=== PATIENT | male | born 1950 ===

== ENCOUNTER 2016-04-08 11:57 | Inpatient (IN) | payer MEDICARE ==
[~2016-04-08] VITALS: Ht 175.3 cm; Wt 80.7 kg
[2016-04-08 14:38] VITALS: BP 197/103; PULSE 80; RESP 18; O2SAT 95
[2016-04-08] MEDS ORDERED: Ondansetron 2 mg/mL 2 mL Inj IVPUSH PRN (15:35)
[2016-04-08] MEDS ORDERED: Polyethylene Glycol (PEG) 17 Gm Powder PO PRN (15:35)
[2016-04-08] MEDS ORDERED: Alum-Mag Hydrox-Simeth 30 mL Suspension PO PRN (15:35)
[2016-04-08] MEDS ORDERED: Glucose 40% Oral Gel 15 Gm Tube PO PRN (15:40)
[2016-04-08 15:57] LABS: BASOPHILS % (AUTO) 0.2 % (0-3); MONOCYTES % (AUTO) 5.9 % (4-12); Mean Corpuscular Hemoglobin 29.5 pg (27.0-35.0); Mean Corpuscular Volume 85.4 fL (81-100); NEUTROPHILS % (AUTO) 86.6 % (40-74); Platelet Count 200 bil/L (150-400)
--- NOTE | 2016-04-08 16:07 | PCM.HPMED ---
Subjective Date of Service Apr 08, 2016 Primary Provider: Admitting Physician: Jagdish Carmichael MD Primary Care Physician: Attending Physician: Jagdish Carmichael MD Chief Complaint: Admitted initially for chest pain to [facility]. found to have hematuria/ADELAIDE/ obstructive hydronephrosis History of Present Illness: 65-year-old male presenting with chest pain on exertion to [facility]. 04/06 is what the documentation states. Patient tells me he had missed a few appointments and was not getting his medications for at least several months he has not exactly clear how long. Could have been as long as a year. He had been using insulin in the past changed to metformin and had not had lab work done. He decided to go in to get lab work done. Patient actually denies any urinary problems prior to the Rutledge catheter insertion. Review of Systems: Patient equivocally denies really much all symptoms other than the hematuria/ dysuria that started after the catheter was inserted Gen.: No fevers chills weight loss weight gain Eyes: no visual disturbances or blurring vision HEENT: No nose/throat drainage, no pain in ears or throat, no hearing loss Lymph: No lymph nodes noted Cardiac: No chest pain, orthopnea, PND, palpitations , pedal edema or dyspnea on exertion Pulmonary: no cough, wheezing or bringing up of sputum GI: No anorexia nausea vomiting blood or black in the stool : no dysuria hematuria urinary frequency or decrease in urine output Musculoskeletal: Joint swelling no joint pain no new muscle aches or back pain Neuro: No syncope, seizures no loss of consciousness no new focal weakness, numbness or tingling Psychiatric: New new anxiety insomnia or depression Endocrine: No new heat or cold intolerances polyuria or polydipsia Hematology: No lymphadenopathy or easy bleeding or bruising noted skin: No new rashes, stasis dermatitis Allergies Uncoded Allergies: steroid (Adverse Reaction, Mild, hyperglycemia, 04/08/16) Home Medications The last 6 months to your patient has been on no medication In the past patient has taken Lisinopril, florastore, metformin PMH HTN DM2 hyperlipidemia CKD medication noncompliance Surgical History None Family History Both parents of old age mother of a stroke and father uncertain Social- patient does not drink or smoke or use illicit drugs lives alone with his girlfriend no children and does not work at this time Exam Vital Signs Vital Sign - Last Date Time Temp Pulse Resp B/P Pulse Ox O2 Delivery O2 Flow Rate FiO2 04/08/16 14:38 37.0 80 18 197/103 95 Room Air Exam Gen.- A+ O 3 no apparent distress. Eyes- open conjunctiva clear, pupils equal nonicteric Mouth- oral mucosa moist, no exudate dentition not great missing front teeth but otherwise largely intact ENT- ears normal, nose normal Neck- supple/trach midline CVS- RRR no murmur or gallop Lungs- CTA GI- NABS/NT soft Musc- moving 4 no obvious deformity Neuro- cranial nerves II through XII intact to gross examination, nonfocal Skin- warm and dry, no rashes/lesions/wounds noted Psych- pleasant and appropriate, Lab and Diagnostics Labs WBC 9.7, Hg 12.4, PLT 185 2/5 NA 141, K3.8, CL 1:15, CO2 21, BUN/creatinine 29, CR 2.8, GLU C1 16 2/5 LFTs WNL 1/5 LDL 45, HDL 23, Trig 124 2/5 HG A1c 6.7 2/5 Troponin 0.04 2/5 Iron/transfer and Ferritin WNL, B12 low normal 193, folate 11.16 2/5 PSA 3.88 2/5 UA moderate occult blood, 05 RBC X-Rays, CTs and MRIs Renal ultrasound equals symmetric hydronephrosis, incomplete bladder emptying both ureteral jets confirmed, enlarged prostate 2/4 CXR mild bibasilar atelectasis 2/4 CT pelvis without contrast extraperitoneal edema surrounding bladder suspicious for acute cystitis, latter completely compressed with Rutledge catheter thickened bladder wall, state hypertrophy, no lymphadenopathy, bilateral hydroureter 2/5 Cardiac Echo Impressions EF 70-75 percent no regional wall motion abnormalities normal to no valvular disease 2/ Assessment & Plan 65-year-old male transferred from [facility] for higher level of care 04/08. Patient actually seems to be on the right track not sure that nephrology/ urology her emergently warranted for inpatient consultation. I will continue to observe this patient and I will discuss with both Danielle France () and Aiden (renal) but have every expectation that they will need to see this patient except in the outpatient setting. I will continue matching I's and O's and monitoring renal function and optimize him medically and likely be discharging him in the next few days when renal function seems to have stabilized wherever that is. Gross hematuria-not unexpected with postobstructive diuresis/cystitis. Will monitor hemoglobin ADELAIDE/CKD3?- 2/2 to obst uropathy relieved by Rutledge catheter. Match I/os for direction of ADELAIDE and postobstructive diuresis, follow BUNs/CR and continue tamsulosin/adding finasteride 2/ likely will have outpatient urology follow- up. If there is anything ongoing or seems substantially may consult as inpatient and probably will discuss in the next day or 2 with urology here. HTN- patient just started on clonidine patch and going to discontinue this as I am my concern is rebound hypertension in a noncompliant patient. Instead I am going to continue metoprolol/amlodipine with when necessary hydralazine and add lisinopril when renal function is better DM2- uncontrolled. HG A1c 6.6 2/ Metformin contraindicated in setting of renal failure will use sliding scale insulin until improved. We will discharge on appropriate medications as indicated Hx hypertriglyceridemia- this must come from clinic notes most recent does not suggest hypertriglyceridemia and patient is not on medications perhaps he had eaten prior to having it drawn when he got this diagnosis. ?? Hypothyroidism??- came over on [place] Thyroid 60 mg we I see no thyroid functions will check TSH and free T4 and stop [place] Thyroid at this time. Prophylaxis- DVT patient on SCDs, heparin, GI famotidine Disposition- full code from [place] Jagdish Carmichael MD Apr 08, 2016 16:07
[2016-04-08 16:32] LABS: Magnesium 1.8 mg/dL (1.6-2.6)
[2016-04-08 16:41] LABS: TROPONIN T < 0.010 ug/L (0.0-0.011)
[2016-04-08] MEDS: 0.9% Sodium Chloride 1,000 ML IV SCH (16:46)
[2016-04-08] MEDS: Insulin LISPRO 300 Unit/3 mL Inj SUBQ SCH ×2 (16:47→22:00)
[2016-04-08 16:50] LABS: Creatine Kinase 44 U/L (21-232)
--- NOTE | 2016-04-08 16:54 | NUR ---
Admit note- Received patient to room 1031 via ambulance from [facility]. Report given per phone from RN at that facility. Patient is alert and oriented. Denies pain. Rutledge catheter in place draining red colored urine. Oriented patient to room, call light, procedures, etc.
[2016-04-08] MEDS: HYDROcodone-APAP 5-325 mg Tablet PO PRN (18:24)
[2016-04-08 18:52] LABS: APPEARANCE,URINE HAZY (CLEAR,HAZY); COLOR,URINE BLOODY (YELLOW)
[2016-04-08 18:53] LABS: OCCULT BLOOD,URINE LARGE (NEGATIVE)
[2016-04-08] MEDS: Heparin 5,000 Unit/mL Inj SUBQ SCH (22:00)
[2016-04-08 22:15] VITALS: BP 180/99; PULSE 97; RESP 18; O2SAT 96
--- NOTE | 2016-04-09 02:02 | NUR ---
Activity Patient bedrest during shift. Answered most questions appropriately. Alert and oriented x3. Patient mentioned eating at [employer] when asked if he had pain. VSS. Call light within reach. Care continues.
[2016-04-09] MEDS: 0.9% Sodium Chloride 1,000 ML IV SCH (02:08)
[2016-04-09] MEDS: HYDROcodone-APAP 5-325 mg Tablet PO PRN ×3 (05:26→22:21)
[2016-04-09 05:55] VITALS: BP 200/119; PULSE 91; RESP 22; O2SAT 97
[2016-04-09] MEDS: Insulin LISPRO 300 Unit/3 mL Inj SUBQ SCH ×4 (08:00→22:00)
[2016-04-09 08:30] VITALS: BP 166/99; PULSE 81; RESP 18; O2SAT 94
[2016-04-09] MEDS ORDERED: Influenza (Adult) Vaccine 0.5 mL Syringe IM ONE (08:30)
[2016-04-09 08:40] LABS: BASOPHILS % (AUTO) 0.3 % (0-3); EOSINOPHILS % (AUTO) 4.3 % (0-5); MONOCYTES % (AUTO) 8.9 % (4-12); Mean Corpuscular Hemoglobin 29.4 pg (27.0-35.0); Mean Corpuscular Volume 86.9 fL (81-100); NEUTROPHILS % (AUTO) 71.2 % (40-74); Platelet Count 187 bil/L (150-400)
[2016-04-09] MEDS: Heparin 5,000 Unit/mL Inj SUBQ SCH ×2 (09:40→20:35)
[2016-04-09] MEDS ORDERED: 0.9% Sodium Chloride 500 ML IV ONE (10:05)
[2016-04-09 13:00] VITALS: BP 173/102; PULSE 97; RESP 20; O2SAT 94
[2016-04-09 18:10] VITALS: BP 193/104; PULSE 68
--- NOTE | 2016-04-09 18:19 | CONS ---
[address] [address] CONSULTATION REPORT PATIENT: JULIAN YANEZ : 1950 MR#: [id number] ADMIT: 04/08/2016 JOB ID: [id number] DATE OF SERVICE: 04/09/2016 HISTORY OF PRESENT ILLNESS: The patient was admitted as a transfer from [facility] with urinary retention, hematuria, and bilateral hydronephrosis. He had been catheterized at [facility] for over 1000 mL. His renal failure and hydronephrosis are almost certainly due to obstructive uropathy. He has been on Flomax and Proscar for some time. He has also one as of his medications oxybutynin 2.5 mg t.i.d. which is certainly a factor in his urinary retention. Past medical, social, and family history: See admission note. PHYSICAL EXAMINATION: A thin 65-year-old in no acute distress. Head and neck: Poor dentition. Trachea midline. Chest: Clear. The abdomen is soft. No masses. No organomegaly. Bowel sounds normal. There is a Rutledge catheter in place. Testes are normal. PLAN: I am going to discontinue his oxybutynin and maintain him on a double dose of Flomax 0.8 mg daily. My plan will be to discharge him home with a catheter for followup in the office. I think discharge would be appropriate as soon as we see a drop in his creatinine, hopefully tomorrow.
--- NOTE | 2016-04-09 18:48 | PCM.PNMED ---
Subjective Date of Service Apr 09, 2016 Subjective No complaints of chest pain, dyspnea, nausea or vomiting. Overall he is feeling better and that his urine is less bloody looking. Exam Vital Signs Vital Sign - Last Date Time Temp Pulse Resp B/P Pulse Ox O2 Delivery O2 Flow Rate FiO2 04/09/16 18:10 68 193/104 04/09/16 13:00 36.3 20 94 Room Air Intake and Output 04/08/16 04/08/16 04/09/16 Cumulative From/Thru 15:00 23:00 07:00 04/08/16 14:36 - 04/09/16 05:55 Intake Total 577 ml 840 ml 1417 ml Output Total 1500 ml 1700 ml 3200 ml Balance -923 ml -860 ml -1783 ml Intake Oral 400 ml 840 ml 1240 ml IV Total 177 ml 177 ml Output Urine Total 1500 ml 1700 ml 3200 ml # Bowel Movements 0 0 Lab and Diagnostics Result Diagram: 04/09/16 0620 04/09/16 1606 X-Rays, CTs and MRIs Renal ultrasound equals symmetric hydronephrosis, incomplete bladder emptying both ureteral jets confirmed, enlarged prostate 2/4 CXR mild bibasilar atelectasis /4 CT pelvis without contrast extraperitoneal edema surrounding bladder suspicious for acute cystitis, latter completely compressed with Rutledge catheter thickened bladder wall, state hypertrophy, no lymphadenopathy, bilateral hydroureter / Cardiac Echo Impressions EF 70-75 percent no regional wall motion abnormalities normal to no valvular disease / Assessment & Plan 65-year-old male transferred from [facility] for higher level of care 04/08. Patient actually seems to be on the right track not sure that nephrology/ urology her emergently warranted for inpatient consultation. I will continue to observe this patient and I will discuss with both Danielle France () and Aiden (renal) but have every expectation that they will need to see this patient except in the outpatient setting. I will continue matching I's and O's and monitoring renal function and optimize him medically and likely be discharging him in the next few days when renal function seems to have stabilized wherever that is. Gross hematuria-not unexpected with postobstructive diuresis/cystitis. Hg stable, hematuria is improving. Thank you Dr. Villareal urology for consultation. Hg dropping whether this is from hematuria versus dilution not clear. Hg 13.1 , 11.4 04/09. ADELAIDE/CKD3?- 2/ to obst uropathy relieved by Rutledge catheter. Match I/os for direction of ADELAIDE and postobstructive diuresis, follow BUNs/CR and continue tamsulosin/adding finasteride 04/08 likely will have outpatient urology follow- up. Cr 2.76, 2.53 04/09, f/u in AM HTN- SBP 166-200 on coreg 12.5 bid, amlodipine 10mg + hydralazine 50mg q4 prn SBP>170 04/09 add lisinopril when renal function is better DM2- uncontrolled. HG A1c 6.6 04/06 BS 95-175 04/09 Hx hypertriglyceridemia- this must come from clinic notes most recent does not suggest hypertriglyceridemia and patient is not on medications perhaps he had eaten prior to having it drawn when he got this diagnosis. Lipids Trig 126 , LDL 52, HDL 28 04/08 ?? Hypothyroidism??- came over on [place] Thyroid 60 mg we I see no thyroid functions will check TSH and free T4 and stop [place] Thyroid at this time. TSH 1.46, free T4 0.90 04/08. No indication no hypothyroidism. No treatment. Prophylaxis- DVT patient on SCDs, heparin, GI famotidine Disposition- full code from home [employer]: Anti-Embolic stockings Jagdish Carmichael MD Apr 09, 2016 18:48
--- NOTE | 2016-04-09 19:33 | NUR ---
Elevated BP/Pain Patient BP 193/104. PRN hydralazine given if SBP greater than 170. Patient reported 7/10 abdominal pain. 2 tabs of [place] given. Denies nausea. Call light and tray table within reach. Will continue to monitor patient hourly.
[2016-04-09 20:44] VITALS: BP 165/91; PULSE 80; RESP 20; O2SAT 95
--- NOTE | 2016-04-09 22:05 | NUR ---
PAIN P: Earlier this afternoon, Pt stated he was having a lot of pain, and rated it a 7/10 when asked. I: Administered Hydrocodone 5-325, 2 tabs. E: At re-assessment 45 minutes later, patient rated pain at a 5/10. S: Bedrails up x2, bed in low position. Non-skid socks, and call light w/in reach.
[2016-04-10] MEDS: HYDROcodone-APAP 5-325 mg Tablet PO PRN ×2 (02:45→08:35)
--- NOTE | 2016-04-10 04:34 | NUR ---
Pain/nagy Pt reporting pain up to 5/10 and taking 2 tabs of Vicodin with good result, pain down to 2/3 out of 10. Pt continues to have bloody urine in nagy. Continue close monitoring.
[2016-04-10 06:04] VITALS: BP 174/97; PULSE 77; RESP 20; O2SAT 96
[2016-04-10] MEDS: Insulin LISPRO 300 Unit/3 mL Inj SUBQ SCH ×2 (07:51→12:00)
[2016-04-10 07:55] LABS: BASOPHILS % (AUTO) 0.4 % (0-3); EOSINOPHILS % (AUTO) 5.3 % (0-5); MONOCYTES % (AUTO) 7.5 % (4-12); Mean Corpuscular Hemoglobin 29.1 pg (27.0-35.0); Mean Corpuscular Volume 86.2 fL (81-100); NEUTROPHILS % (AUTO) 73.4 % (40-74); Platelet Count 227 bil/L (150-400)
[2016-04-10 08:09] LABS: Magnesium 1.9 mg/dL (1.6-2.6); Phosphorus 4.4 mg/dL (2.5-4.9)
[2016-04-10] MEDS: Heparin 5,000 Unit/mL Inj SUBQ SCH (08:36)
[2016-04-10 11:00] VITALS: BP 155/82; PULSE 71; RESP 16; O2SAT 94
--- NOTE | 2016-04-10 11:47 | PCM.DIMED ---
Discharge Instructions Date of Service Apr 10, 2016 Dates of Hospitalization Apr 08, 2016 at 13:59 Discharge Diagnosis Discharge Diagnosis Postobstructive nephropathy. Cystitis, hematuria. Acute kidney injury on chronic kidney disease stage IV Diet Heart Healthy, Diabetic Activity No restrictions Patient Instructions He needs to be watching her blood pressure and seeing a doctor regularly and follow up with nephrology (Chris) and urology (Mono) Follow-up with PCP in: Other (find a primary care provider. Call Danielle Villareal and Chris's offices for follow-up appointment) Attending's Statement Patient needs to follow up with urology and nephrology and probably needs to come here I am not sure there are any urologist/oil well service unit operator on [facility] perhaps he can find one there. The major problem is that making to see doctors is not this patient's strong suit I have concerns that his follow-up will be suboptimal by his own hand. Jagdish Carmichael MD Apr 10, 2016 11:47
[2016-04-10] MEDS ORDERED: AMLO10TA3 PO (12:07)
[2016-04-10] MEDS ORDERED: FINA5TAB9 PO (12:07)
[2016-04-10] MEDS ORDERED: TAMS0.4C98 PO (12:07)
[2016-04-10] MEDS ORDERED: HYDR-3939 PO (12:07)
[2016-04-10] MEDS ORDERED: CARV25TA2 PO (12:07)
--- NOTE | 2016-04-10 12:09 | PCM.DC.MED ---
Discharge Summary Date of Service Apr 10, 2016 Dates of Hospitalization Date of Hospital Admission Apr 08, 2016 at 13:59 Date of Discharge: Apr 10, 2016 Providers: Admitting Physician: Alta Carmichael MD Primary Care Physician: Attending Physician: Alta Carmichael MD Diagnosis at Time of Discharge Diagnosis at Time of Discharge Postobstructive nephropathy. Cystitis, hematuria. Acute kidney injury on chronic kidney disease stage IV Consultations Dr. Villareal (urology) and Dr. Perez... (Nephrology) Procedures XRay, CTs & MRIs Renal ultrasound equals symmetric hydronephrosis, incomplete bladder emptying both ureteral jets confirmed, enlarged prostate 2/ done at [facility] CXR mild bibasilar atelectasis / done at [facility]. CT pelvis without contrast extraperitoneal edema surrounding bladder suspicious for acute cystitis, latter completely compressed with Rutledge catheter thickened bladder wall, state hypertrophy, no lymphadenopathy, bilateral hydroureter / done at [facility]. ECG 12 Lead EKG personally/concurrently reviewed by Amol from 04/08 sinus rhythm at a rate of 88, QTC 437 ms EKG date 04/08/16 Cardiac Echo Impression EF 70-75 percent no regional wall motion abnormalities normal to no valvular disease 04/06 done at [facility] Brief History 65-year-old male presenting with chest pain on exertion to [facility] 04/06 is what the documentation states. Patient tells me he had missed a few appointments and was not getting his medications for at least several months he has not exactly clear how long. Could have been as long as a year. He had been using insulin in the past changed to metformin and had not had lab work done. He decided to go in to get lab work done. Patient actually denies any urinary problems prior to the Rutledge catheter insertion. Hospital Course 65-year-old male transferred from [facility] for higher level of care 04/08. Patient actually seems to be on the right track not sure that nephrology/ urology her emergently warranted for inpatient consultation. I will continue to observe this patient and I will discuss with both Danielle France () and Aiden (renal) but have every expectation that they will need to see this patient except in the outpatient setting. I will continue matching I's and O's and monitoring renal function and optimize him medically and likely be discharging him in the next few days when renal function seems to have stabilized wherever that is. Gross hematuria-not unexpected with postobstructive diuresis/cystitis. Hg stable, hematuria is improving. Thank you Dr. Villareal urology for consultation. Hg dropping whether this is from hematuria versus dilution not clear. Hg 13.1 , 11.4 04/09. ADELAIDE/CKD3?- 2 to obst uropathy relieved by Rutledge catheter. Match I/os for direction of ADELAIDE and postobstructive diuresis, follow BUNs/CR and continue tamsulosin/adding finasteride 04/08 likely will have outpatient urology follow- up. Cr 2.76, 2.53 04/09, f/u in AM HTN- SBP 166-200 on coreg 12.5 bid, amlodipine 10mg + hydralazine 50mg q4 prn SBP>170 04/09 add lisinopril when renal function is better DM2- uncontrolled. HG A1c 6.6 04/06 BS 95-175 04/09 Hx hypertriglyceridemia- this must come from clinic notes most recent does not suggest hypertriglyceridemia and patient is not on medications perhaps he had eaten prior to having it drawn when he got this diagnosis. Lipids Trig 126 , LDL 52, HDL 28 04/08 ?? Hypothyroidism??- came over on [place] Thyroid 60 mg we I see no thyroid functions will check TSH and free T4 and stop [place] Thyroid at this time. TSH 1.46, free T4 0.90 04/08. No indication no hypothyroidism. No treatment. Prophylaxis- DVT patient on SCDs, heparin, GI famotidine Disposition- full code from home Exam Vital Signs (Last) Date Time Temp Pulse Resp B/P Pulse Ox O2 Delivery O2 Flow Rate FiO2 04/10/16 11:00 36.5 71 16 155/82 94 Room Air Exam Gen.- A+ O 3 no apparent distress. Thin male Eyes- open conjunctiva clear, pupils equal nonicteric Mouth- oral mucosa moist, no exudate dentition not great missing front teeth but otherwise largely intact ENT- ears normal, nose normal Neck- supple/trach midline CVS- normal rate Lungs- CTA GI- flat Musc- moving 4 no obvious deformity Neuro- cranial nerves II through XII intact to gross examination, nonfocal Skin- warm and dry, no rashes/lesions/wounds noted Psych- pleasant and appropriate, Rutledge catheter draining sanguinous urine no clots it does appear more lucent vs 1 day prior Test 04/08/16 15:50 04/08/16 18:20 04/09/16 06:20 04/10/16 07:12 Total Creatine Kinase 44U/L (21-232) Creatine Kinase MB 2.4ng/mL (0.0-10.4) Creatine Kinase MB % % (0.0-5.0) Troponin T < 0.010ug/L (0.0-0.011) Prostate Specific Antigen 5.9ng/mL (0.0-4.0) Thyroid Stimulating Hormone (TSH) 1.460uIU/mL (0.450-4.500) Free Thyroxine 0.90ng/dL (0.82-1.77) Urine Color Bloody (YELLOW) Urine Appearance Hazy (CLEAR,HAZY) Urine pH 7.0 (5.0-8.0) Urine Specific [place] 1.010 (1.003-1.035) Urine Protein 300mg/dL (NEG,TRACE) Urine Glucose (UA) 100mg/dL (NEGATIVE) Urine Ketones 15mg/dL (NEGATIVE) Urine Occult Blood Large (NEGATIVE) Urine Nitrite Positive (NEGATIVE) Urine Bilirubin Negative (NEGATIVE) Urine Urobilinogen 4.0mg/dL (NORMAL) Urine Leukocyte Esterase Moderate (NEGATIVE) Urine RBC >50/hpf (0-2) Urine WBC 6-10/hpf (0-5) Urine Epithelial Cells None/hpf (NONE-MOD) Urine Crystals None seen (NONE SEEN) Urine Bacteria Few/hpf (NONE-FEW) Urine Hyaline Casts None/lpf (NONE) Urine Granular Casts None seen (NONE SEEN) Urine Waxy Casts None seen (NONE SEEN) Urine Red Blood Cell Casts None seen (NONE SEEN) Urine White Blood Cell Casts None seen (NONE SEEN) Urine Mucus None seen (None Seen) Urine Trichomonas None seen (NONE SEEN) Urine Yeast None (NONE SEEN) Urinalysis Comment None Urine Culture Reflexed Indicated Triglycerides Level 120mg/dL (0-149) Cholesterol Level 104mg/dL (100-199) LDL Cholesterol, Calculated 52.000mg/dL (0-99) VLDL Cholesterol 24.000mg/dL HDL Cholesterol 28mg/dL (>39) Cholesterol/HDL Ratio 3.71 (0.0-4.4) White Blood Count 7.4th/mm3 (3.8-10.1) Red Blood Count 4.05mil/mm3 (4.40-5.80) Hemoglobin 11.8g/dL (13.8-17.2) Hematocrit 34.9% (41.0-50.0) Mean Corpuscular Volume 86.2fL (81-100) Mean Corpuscular Hemoglobin 29.1pg (27.0-35.0) Mean Corpuscular Hemoglobin Concent 33.8% (32.0-37.0) Red Cell Distribution Width 14.4% (12.3-15.4) Platelet Count 227bil/L (150-400) Neutrophils (%) (Auto) 73.4% (40-74) Lymphocytes (%) (Auto) 13.3% (14-46) Monocytes (%) (Auto) 7.5% (4-12) Eosinophils (%) (Auto) 5.3% (0-5) Basophils (%) (Auto) 0.4% (0-3) Sodium Level 141mEq/L (134-144) Potassium Level 4.4mEq/L (3.5-5.2) Chloride Level 108mEq/L (97-108) Carbon Dioxide Level 19mmol/L (18-29) Blood Urea Nitrogen 38mg/dL (8-27) Creatinine 2.61mg/dL (0.76-1.27) Estimat Glomerular Filtration Rate 26mL/min (>59) Glucose Level 118mg/dL (60-99) Calcium Level 8.1mg/dL (8.5-10.1) Phosphorus Level 4.4mg/dL (2.5-4.9) Magnesium Level 1.9mg/dL (1.6-2.6) Total Bilirubin 0.3mg/dL (0.0-1.2) Aspartate Amino Transf (AST/SGOT) 10U/L (0-50) Alanine Aminotransferase (ALT/SGPT) 9U/L (0-44) Alkaline Phosphatase 63U/L (25-160) Total Protein 5.8g/dL (6.4-8.4) Albumin 3.2g/dL (3.4-5.0) Microbiology Results No growth from 2/6 urine Discharge Medications Discharge Medications Amlodipine (Amlodipine) 10 Mg Tablet 10 MG PO DAILY Prescribed by: ALTA CARMICHAEL MD Carvedilol (Carvedilol) 25 Mg Tablet 25 MG PO BIDWM Prescribed by: ALTA CARMICHAEL MD Finasteride (Finasteride) 5 Mg Tablet 5 MG PO DAILY Prescribed by: ALTA CARMICHAEL MD Tamsulosin (Flomax) 0.4 Mg Capsule 0.8 MG PO DAILY Prescribed by: ALTA CARMICHAEL MD As needed Hydralazine (Hydralazine) 25 Mg Tablet 50 MG PO Q4H PRN PRN SBP>170 Prescribed by: ALTA CARMICHAEL MD Followup Plan Disposition: To home even though he has not felt really to be ambulatory and needs some assistance from physical therapy patient does not want to consider SNF. Discharge Diet: Heart Healthy, Diabetic Discharge Activity: No restrictions Patient Instructions He needs to be watching her blood pressure and seeing a doctor regularly and follow up with nephrology (Chris) and urology (Mono) Follow-up with PCP in: Other (find a primary care provider. Call Danielle Villareal and Chris's offices for follow-up appointment) Time spent Greater than 30 minutes Attending Statement I am worried about this patient and getting any follow-up. He manage not to have any locally and now he is going to try and find a otolaryngology rep in [place] by going to the dialysis center I believe. He seems reluctant to want to come "all the way over here" however I see him having trouble as he can't even make it to a primary care provider in [facility] never mind a specialist such as a otolaryngology rep/urologist in timely fashion. If there is any way to provide him assistance I think that would be beneficial. I am not sure he understands the gravity of his situation and the damage to his kidneys already. Alta Carmichael MD Apr 10, 2016 12:09
--- NOTE | 2016-04-10 14:22 | PCM.CHPMED ---
Subjective Date of Service: Apr 10, 2016 Primary Physician: Admitting Physician: Jagdish Carmichael MD Primary Care Physician: Attending Physician: Jagdish Carmichael MD Chief Complaint: Chief Complaint: gross hematuria, acute kidney injury. History of Present Illness: This is a 65-year-old male with a significant past medical history of diabetes-2, hypertension, chronic kidney disease, dyslipidemia was transferred from [facility] for a higher level care. Patient presented to [facility] on 04/06/2016 with complaint of chest pain. The initial workup was done . Acute coronary artery syndrome was ruled out. Patient was found to have acute kidney injury with a creatinine of 3.6. Kidney sonogram bilateral hydronephrosis patient had a Rutledge catheter placement, initial urine output was 1L. He also developed gross hematuria. He was then transferred to [facility] for a higher level of care. His creatinine has ranged between 2.5 and 2.78. He was already evaluated by urologist. Currently he is on Flomax 0.8 mg once a day and Proscar 5 mg daily. Patient reports having type II diabetes and hypertension for at least 10 years. He was using insulin and then switched to metformin. However, he has not taken metformin for at least 1 year. Patient was told 8 years ago that he had some kidney dysfunction. He reports not using NSAIDs. He has no history of kidney stones. Allergies Uncoded Allergies: steroid (Adverse Reaction, Mild, hyperglycemia, 04/08/16) Home Medications The last 6 months to your patient has been on no medication In the past patient has taken Lisinopril, florastore, metformin Past Medical History PMH HTN DM2 hyperlipidemia CKD medication noncompliance Surgical History None Family History Both parents of old age mother of a stroke and father uncertain Social- patient does not drink or smoke or use illicit drugs lives alone with his girlfriend no children and does not work at this time PMH Bedside Blood Glucose: 146 Allergies: Uncoded Allergies: steroid (Adverse Reaction, Mild, hyperglycemia, 04/08/16) Social History Hx Alcohol Use: NoHx Substance Use: No Exam Vital Signs Vital Sign - Last Date Time Temp Pulse Resp B/P Pulse Ox O2 Delivery O2 Flow Rate FiO2 04/10/16 11:00 36.5 71 16 155/82 94 Room Air Intake and Output 204/09/16 04/10/16 Cumulative From/Thru 15:00 23:00 07:00 04/08/16 14:36 - 04/10/16 06:36 Intake Total 1030 ml 2507 ml 1579 ml 6533 ml Output Total 2675 ml 1325 ml 7200 ml Balance 1030 ml -168 ml 254 ml -667 ml Intake Oral 840 ml 400 ml 2480 ml IV Total 1030 ml 1667 ml 1179 ml 4053 ml Output Urine Total 2675 ml 1325 ml 7200 ml # Bowel Movements 4 1 5 General: Alert, Oriented X3, Cooperative Head: Normal Eyes: PERRLA, EOMI, Scleral Anicteric Mouth: Lips, Mouth Normal, Mucous Membr Moist/[place] Neck: Supple, No Thyromegaly Chest & Lungs: Chest Wall Normal, Clear to auscultation & percussion, No adventitious breath sounds Cardiovascular: Exam Unremarkable, Regular Rate/Rhythm, Normal S1, Normal S2 Abdomen: Tender, Non-tender, Non-distended, No masses, No hepatosplenomegaly Genitourinary: Rutledge Present Musculoskeletal: Unremarkable Extremities: No cyanosis/clubbing/edma bilat Lab and Diagnostics Result Diagram: 04/10/1671104/10/16 0712 Assessment & Plan Assessment 1. Acute kidney injury superimposed on chronic kidney disease. - Secondary to obstructive neuropathy, BPH with bladder outlet obstruction. 2. Chronic kidney disease, unknown baseline serum creatinine. - Secondary to diabetic nephropathy and hypertensive nephrosclerosis. 3. Type II diabetes, poor compliance. 4. HTN with hypertensive nephrosclerosis. 5. Dyslipidemia. Plan: - Continue current medications - Follow-up nephrology within 1-2 weeks. - Recommend low salt diet - Avoid NSAIDs - Avoid nephrotoxins. Thank you for allowing me to participate in the care of your patient. Problems: VTE Mechanical Devices: Anti-Embolic stockings India Kelly MD Apr 10, 2016 14:18
--- NOTE | 2016-04-10 14:58 | NUR ---
Social Work Discharge: SW acknowledged order for discharge. SW met with patient at bedside to discuss discharge plan. Patient states residing home alone in [place] and states friend Karen assists with needs and to provide transport home. Patient is a 65 year old male admitted on 04/08/16 for ADELAIDE and Urinary obstruction. Patient payer as Medicare. Patient has no PCP. RAJ requested that UR specialist coordinate P[facility]. Patient states pharmacy of choice as [facility]. Patient has no senior care disability nor VA benefits. Patient has a walker for use at home. RAJ discussed therapy recommendations for HHC. Patient states being in agreement to HHC services. HHC choice list provided. Patient states having no HHC preference and choice to use any in network facility. Referral sent to [facility] as agency provider week. RAJ faxed face to face to [facility], . Access provided. RAJ discussed arrangements with friend Karen. No other needs identified. PLAN: Home with HH via [facility] (face to face/access provided). Friend to provide transport home. Joy BARKLEY Addendum: 04/10/16 at 1512 by CHANTELLE GARRETT Amended: Links added.
--- NOTE | 2016-04-10 15:19 | NUR ---
MIKAELA completed with patient and signed
--- NOTE | 2016-04-10 15:29 | NUR ---
Evaluation completed. Please go to "Notes" then click on "Assessments and Notes" (bottom left corner of screen). Then select appropriate discipline tab on top of screen.
--- NOTE | 2016-04-10 15:31 | NUR ---
Discharge Patient discharged home. IV DC'd and intact. Discharge instructions given with no questions. Finasteride, hydralazine, amlodipine, tamsulosin, carvedilol faxed to [facility]. Nagy care instructions given with no questions. Sent how to care of your nagy catheter information and information on all new medications patient will be taking at home. Family friend gathered all of the patients belongings. BOOK COVERER escorted patient out via W/C.
[2016-04-10] MEDS ORDERED: Magnesium Hydroxide 355 mL Oral Suspension PO PRN (17:10)
== END 2016-04-10 15:26 | disposition home health service (06) | DRG 683 ==
LOC: OSC 13:59 → OBSVTOIN 13:59
PROVIDERS: ADMIT Hospitalist; ATTEND Hospitalist
DX: N17.9 Acute kidney failure, unspecified (principal); N13.8 Other obstructive and reflux uropathy; N30.91 Cystitis, unspecified with hematuria; E78.5 Hyperlipidemia, unspecified; I12.9 Hypertensive chronic kidney disease with stage 1 through stage 4 chronic kidney disease, or unspecified chronic kidney disease; N18.3 Chronic kidney disease, stage 3 (moderate); N40.1 Benign prostatic hyperplasia with lower urinary tract symptoms; Z98.890 Other specified postprocedural states